=== PATIENT | male | born 1960 ===

== ENCOUNTER 2017-03-31 19:32 | Emergency (ER) | payer OTHER ==
[2017-03-31 19:59] VITALS: BP 154/87
[2017-03-31] MEDS ORDERED: Diphtheria,Pertussis(Acell),Tetanus Vaccine 0.5 ML SDV IM ONE (20:26)
--- NOTE | 2017-03-31 20:31 | EDM.PDOC ---
ED HPI GENERAL MEDICAL PROBLEM - General Chief Complaint: Laceration Stated Complaint: head injury Time Seen by Provider: 03/31/17 20:15 Source of Information: Reports: Patient History Limitations: Reports: No Limitations - History of Present Illness INITIAL COMMENTS - FREE TEXT/NARRATIVE: Patient is a 56-year-old female who presents to the ED complaining of a laceration to the top of his head. 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 A piece of metal was thrown into the the back of a pickup but bounced out landing on the little knob on top of the hat. Patient did not get knocked out. Pain was mild in nature. It did bleed quite a bit controlled with direct pressure. They did clean the wound while at work. He has minimal complaints at this time. Tetanus status is not up-to-date. Denies any neck pain, back pain, nausea/vomiting, headache, or vision changes. Head Pain Score (Numeric/FACES): 1 - Related Data Allergies Allergy/AdvReac Type Severity Reaction Status Date / Time amoxicillin Allergy Hives Verified 03/31/17 19:53 Home Meds: Home Meds Aspirin 1 tab PO DAILY 03/31/17 [History] Multivitamin [Multi-Vitamin Daily] 1 tab PO DAILY 03/31/17 [History] Past Medical History HEENT History: Reports: Impaired Vision Cardiovascular History: Reports: Other (See Below) Other Cardiovascular History: freq PVC's Respiratory History: Reports: Sleep Apnea Musculoskeletal History: Reports: Arthritis, Fracture Other Musculoskeletal History: both wrists , ankle, foot, hips - Past Surgical History HEENT Surgical History: Reports: Adenoidectomy, Tonsillectomy, Other (See Below) Other HEENT Surgeries/Procedures: septal plasty Other Musculoskeletal Surgeries/Procedures:: right wrist, Social & Family History - Family History Cardiac: Reports: CAD, Hypertension Endocrine/Metabolic: Reports: Hypothyroidism Oncologic: Reports: Lung, Prostate, Thyroid - Tobacco Use Smoking Status *Q: Never Smoker - Caffeine Use Caffeine Use: Reports: Coffee, Soda - Alcohol Use Days Per Week of Alcohol Use: 7 Number of Drinks Per Day: 3 Total Drinks Per Week: 21 Date of Last Drink: 03/31/17 Time of Last Drink: 19:00 - Recreational Drug Use Recreational Drug Use: No ED ROS GENERAL - Review of Systems Review Of Systems: ROS reveals no pertinent complaints other than HPI. ED EXAM, SKIN/RASH Exam: See Below Exam Limited By: No Limitations General Appearance: Alert, WD/WN, No Apparent Distress Ears: Hearing Grossly Normal Nose: Normal Inspection Throat/Mouth: Normal Voice, No Airway Compromise Neck: Normal Inspection, Supple Respiratory/Chest: No Respiratory Distress, Lungs Clear, Normal Breath Sounds, No Accessory Muscle Use Cardiovascular: Normal Peripheral Pulses, Regular Rate, Rhythm Peripheral Pulses: 2+: Radial (L) Neurological: Alert, Oriented, CN II-XII Intact, Normal Cognition, No Motor/ Sensory Deficits Psychiatric: Normal Affect, Normal Mood Skin: Warm, Dry, Normal Color, Other (1 cm superficial laceration to the top of his head. Minimal bleeding present. No deformity and or foreign objects present. ) Course - Vital Signs Last Recorded V/S: Last Vital Signs Temp 97 F 03/31/17 19:57 Pulse 83 03/31/17 19:57 Resp 18 03/31/17 19:57 BP 154/87 H 03/31/17 19:57 Pulse Ox 95 03/31/17 19:57 - Orders/Labs/Meds Orders: Active Orders 24 hr Category Date Time Status Vaccines to be Administered [RC] PER UNIT ROUTINE Care 03/31/17 20:26 Ordered Meds: Medications Discontinued Medications Generic Name Dose Route Start Last Admin Trade Name Ronald PRN Reason Stop Dose Admin Diphtheria/Tetanus/Acell Pertussis 0.5 ml 03/31/17 20:26 Adacel IM 03/31/17 20:27 .ONCE ONE - Re-Assessments/Exams Free Text/Narrative Re-Assessment/Exam: Laceration measured approximately 1 cm in diameter. laceration was not deep and did not require sutures. Wound was cleaned with chlorhexidine.Utilized steristrips and mastisol to approximate the wound edges with no complications. Updated tetanus status with adacel. Discharge instructions as documented. Departure - Departure Time of Disposition: 20:29 Disposition: Home, Self-Care 01 Condition: Good Clinical Impression: Laceration of head Qualifiers: Encounter type: initial encounter Location of open wound of head: scalp Foreign body presence: without foreign body Qualified Code(s): S01.01XA - Laceration without foreign body of scalp, initial encounter - Discharge Information Instructions: Laceration Care, Adult, [id number], Stitches, [place], or Adhesive Wound Closure, [id number] Referrals: Armida Casas PA [Primary Care Provider] - Forms: ED Department Discharge, ED Return to Work/School Form Additional Instructions: Cleanse site twice daily with soap and water, pat dry, and reapplying dressing if oozing. Steri-Strips will fall off on their own accord in the next 3-5 days. Utilize Tylenol and ibuprofen as needed for pain. Keep area clean and dry. Return to the ED for any new or worsening symptoms. - My Orders Last 24 Hours: My Active Orders 03/31/17 20:26 Vaccines to be Administered [RC] PER UNIT ROUTINE - Assessment/Plan Last 24 Hours: My Active Orders 03/31/17 20:26 Vaccines to be Administered [RC] PER UNIT ROUTINE
== END 2017-03-31 21:00 | disposition home or self-care (01) ==
LOC: JD.ED 19:32
DX: S01.01XA Laceration without foreign body of scalp, initial encounter (principal); Z79.82 Long term (current) use of aspirin; W20.8XXA Other cause of strike by thrown, projected or falling object, initial encounter; Z23 Encounter for immunization
CPT/HCPCS: 90471; 90715; 99282; 99283-25

== ENCOUNTER 2022-12-09 18:39 | Emergency (ER) | payer OTHER ==
[2022-12-09 19:42] LABS: BASOPHILS ABSOLUTE AUTO 0.03 K/mm3 (0.01-0.08); BASOPHILS PERCENT AUTO 0.5 % (0.1-1.2); EOSINOPHILS ABSOLUTE AUTO 0.23 K/mm3 (0.04-0.54); EOSINOPHILS PERCENT AUTO 3.5 (0.8-7.0); HEMATOCRIT 41.5 % (40.1-51.0); HEMOGLOBIN 13.2 gm/dl (13.7-17.5); LYMPHOCYTES ABSOLUTE AUTO 1.58 K/mm3 (1.32-3.57); MEAN CORPUSCULAR HEMOGLOBIN 26.4 pg (25.7-32.2); MEAN CORPUSCULAR HGB CONC 31.8 g/dl (32.2-35.5); MEAN PLATELET VOLUME 8.6 fl (9.4-12.3); MONOCYTES ABSOLUTE AUTO 1.08 K/mm3 (0.30-0.82); MONOCYTES PERCENT AUTO 16.4 % (5.3-12.2); NEUTROPHILS ABSOLUTE AUTO 3.67 K/mm3 (1.78-5.38); NEUTROPHILS PERCENT AUTO 55.6 % (34.0-67.9); PLATELET COUNT,PLT 187 K/mm3 (163-337); WHITE BLOOD CELL COUNT,WBC 6.59 K/mm3 (4.23-9.07)
[2022-12-09] MEDS: Nitroglycerin 0.4 MG Tab.SL SL PRN ×2 (19:47→20:01)
[2022-12-09 20:07] LABS: ALBUMIN 3.6 g/dl (3.4-5.0); ANION GAP 14.5 (5-15); BILIRUBIN TOTAL 1.6 mg/dL (0.2-1.0); BUN/CREATININE RATIO 11.1 (14-18); CREATININE 0.9 mg/dL (0.7-1.3); POTASSIUM,K 3.5 mEq/L (3.5-5.1); PROTEIN TOTAL,TP 7.4 g/dl (6.4-8.2)
[2022-12-10 03:13] VITALS: BP 127/68; PULSE 75
== END 2022-12-09 22:01 | disposition home or self-care (01) ==
LOC: JD.ED 18:39
DX: R20.2 Paresthesia of skin (principal); R20.8 Other disturbances of skin sensation; Z88.0 Allergy status to penicillin; Z79.899 Other long term (current) drug therapy; Z79.82 Long term (current) use of aspirin
CPT/HCPCS: 36415; 71045; 80053; 84484; 85025; 93005; 99284; A9270; 93010